=== PATIENT | female | born 1945 | race Caucasian/White ===

== ENCOUNTER 2017-01-02 11:23 | Outpatient (CLI) | payer OTHER, MEDICARE ==
[2017-01-02 19:25] LABS: ALBUMIN/GLOBULIN RATIO 1.4 (1.0-2.2); BILIRUBIN,TOTAL 0.7 mg/dL (0.2-1.0); BUN - BLOOD UREA NITROGEN 15 mg/dL (6-20); CALCIUM 9.4 mg/dL (8.5-10.3); CARBON DIOXIDE - CO2 28 mmol/L (21-32); CHLORIDE 104 mmol/L (101-111); CHOL/HDL RATIO 3.9 (<4.4); CHOLESTEROL 189 mg/dL; CREATININE 0.7 mg/dL (0.4-1.0); GFR - MDRD 83 (>89); GLUCOSE 92 mg/dL (70-100); HDL CHOLESTEROL 49 mg/dL; LDL/HDL RATIO 2.2 (<4.4); POTASSIUM 4.5 mmol/L (3.5-5.0); SODIUM 139 mmol/L (135-145); TOTAL PROTEIN 7.6 g/dL (6.7-8.2); TRIGLYCERIDES 149 mg/dL; VLDL CHOLESTEROL 30 mg/dL
[2017-01-02 19:35] LABS: BASOPHILS % (AUTO) 0.6 %; EOSINOPHILS # (AUTO) 0.1 10^3/uL (0.0-0.7); HCT - HEMATOCRIT 43.4 % (37.0-47.0); HGB - HEMOGLOBIN 14.5 g/dL (12.0-16.0); LYMPHOCYTES # (AUTO) 1.5 10^3/uL (1.5-3.5); LYMPHOCYTES % (AUTO) 32.9 %; MEAN CORPUSCULAR HEMOGLOBIN 31.8 pg (27.0-31.0); MEAN CORPUSCULAR HGB CONC 33.5 g/dL (32.0-36.0); MEAN CORPUSCULAR VOLUME 95.1 fL (81.0-99.0); MEAN PLATELET VOLUME 7.9 fL (7.9-10.8); MONOCYTES # (AUTO) 0.6 10^3/uL (0.0-1.0); MONOCYTES % (AUTO) 13.6 %; NEUTROPHILS # (AUTO) 2.3 10^3/uL (1.5-6.6); NEUTROPHILS % (AUTO) 50.9 %; NUCLEATED RED BLOOD CELLS AUTO 0.2 /100WBC; RED BLOOD COUNT 4.56 10^6/uL (4.20-5.40); UNCORRECTED WHITE BLOOD COUNT 4.4 x10^3/uL; WHITE BLOOD COUNT 4.4 x10^3/uL (4.8-10.8)
[2017-01-02 20:25] LABS: HEMOGLOBIN A1C 0.55 g/dL
== END 2017-01-02 11:24 | disposition home or self-care (01) ==
LOC: LAB.N 11:23
PROVIDERS: ATTEND Physician Assistant
DX: R03.0 Elevated blood-pressure reading, without diagnosis of hypertension (principal)
CPT/HCPCS: 36415; 80053; 80061; 83036; 84443; 85025

== ENCOUNTER 2020-06-23 11:50 | Outpatient (CLI) | payer MEDICARE, OTHER ==
--- NOTE | 2020-06-23 16:29 | XRAY Report ---
PROCEDURE: Shoulder 3 View LT INDICATIONS: L SHOULDER PX TECHNIQUE: 3 views of the shoulder were acquired. COMPARISON: None. FINDINGS: Bones: No fractures or dislocations. No suspicious bony lesions. Moderate acromioclavicular and cl avicular humeral joint degeneration. Possible intra-articular body or large osteophyte inferior gleno humeral joint. Visualized ribs appear intact. Soft tissues: No suspicious soft tissue calcifications. IMPRESSION: 1. Moderate degenerative joint disease. 2. Possible intra-articular body or large osteophyte in the inferior glenohumeral joint. Reviewed by: Vanessa Apple MD on 06/23/2020 4:28 PM PST Approved by: Vanessa Apple MD on 06/23/2020 4:28 PM PST Station ID: [id number]
== END 2020-06-23 11:51 | disposition home or self-care (01) ==
LOC: DI.N 11:50
PROVIDERS: ATTEND Family Medicine
DX: S46.912A Strain of unspecified muscle, fascia and tendon at shoulder and upper arm level, left arm, initial encounter (principal); M19.012 Primary osteoarthritis, left shoulder

== ENCOUNTER 2020-12-30 08:55 | Outpatient (CLI) | payer MEDICARE ==
--- NOTE | 2020-12-30 14:04 | MRI Report ---
PROCEDURE: Shoulder LT W/O INDICATIONS: OSTEOARTHRITIS LEFT SHOULDER, STRAIN OF LEFT SHOUL TECHNIQUE: Noncontrast oblique coronal T2 fast spin echo with fat saturation, oblique sagittal T1 spin echo and T2 fast spin echo with fat saturation, axial T1 spin echo and T2 fast spin echo with fat saturation t hrough the shoulder. COMPARISON: Left shoulder radiographs 06/23/2020. FINDINGS: Image quality: Excellent. Rotator cuff: Mild supraspinatus and infraspinatus tendinosis is seen without a significant tear. Th e teres minor tendon is intact. There is mild subscapularis tendinosis and moderate grade partial int rasubstance tearing at the distal insertion.. Mild edema is seen in the medial aspect of the supraspi natus, subscapularis, and infraspinatus muscles, consistent with low-grade muscle strains. There is n o significant rotator cuff muscle atrophy. Bones and bursae: No acute trabecular bone injury. Severe degenerative changes are seen in the gleno humeral joint with large areas of full-thickness cartilage loss, subchondral cystic changes and edema , and marginal osteophyte formation. There is mild remodeling of the glenoid with approximately 8 deg ree retroversion relative to the midplane of the scapula at the mid glenoid level. There is mild acro mioclavicular joint osteoarthrosis there is a moderate glenohumeral effusion with mild synovial hyper trophy. A 3 mm hypointensity is seen in the axillary recess that is suspicious for a small intra-mike cular loose body. Capsule and soft tissues: There is mild circumferential labral degeneration. The long head of the bi ceps tendon demonstrates tendinosis and mild medial subluxation/perching along the medial aspect of t he bicipital groove. There is partial effacement of the normal fat signal in the rotator interval. The inferior glenohumeral ligament is normal in thickness. IMPRESSION: 1. Severe glenohumeral osteoarthrosis with large areas of full-thickness cartilage loss in the gleno humeral joint as well as subchondral cystic changes and edema and marginal osteophyte formation. Jaylon deling of the glenoid is seen with approximately 8 degrees of retroversion relative to the midplane o f the scapula at the mid glenoid level. 2. Moderate grade intrasubstance tearing at the superior subscapularis tendon insertion superimposed on tendinosis. Mild supraspinatus and infraspinatus tendinosis. 3. Low-grade strains of the medial supraspinatus, infraspinatus, and subscapularis muscles. 4. Tendinosis and mild medial subluxation of the biceps long head tendon. 5. Mild circumferential labral degeneration. 6. Mild acromioclavicular joint osteoarthrosis. 7. Moderate joint effusion with mild synovial hypertrophy and a 3 mm suspected loose body in the axi llary recess. Reviewed by: Rajiv Mckinnon MD on 12/30/2020 2:03 PM PDT Approved by: Rajiv Mckinnon MD on 12/30/2020 2:03 PM PDT Station ID: [id number]
== END 2020-12-30 08:56 | disposition home or self-care (01) ==
LOC: DI 08:55
PROVIDERS: ATTEND Family Medicine
DX: M19.012 Primary osteoarthritis, left shoulder (principal); S46.022A Laceration of muscle(s) and tendon(s) of the rotator cuff of left shoulder, initial encounter; S46.012A Strain of muscle(s) and tendon(s) of the rotator cuff of left shoulder, initial encounter; M75.82 Other shoulder lesions, left shoulder; M25.412 Effusion, left shoulder

== ENCOUNTER 2023-05-19 13:50 | Outpatient (CLI) | payer MEDICARE ==
--- NOTE | 2023-05-19 14:53 | XRAY Report ---
PROCEDURE: Chest 2V INDICATIONS: CHRONIC COUGH TECHNIQUE: 2 views of the chest were acquired. COMPARISON: None. FINDINGS: Surgical changes and devices: Right upper quadrant surgical clips. Lungs and pleura: No pleural effusions or pneumothorax. Small high attenuation focus within the kaylee pheral left lower lung zone measuring approximately 4 mm, may represent calcified granuloma. Lungs a re otherwise clear. Mediastinum: Mediastinal contours appear normal. Heart size is normal. Bones and chest wall: No suspicious bony lesions. Overlying soft tissues appear unremarkable. IMPRESSION: 1.No acute cardiopulmonary process. 2.Small has attenuation focus within the peripheral left lower lung zone may represent a calcified gr anuloma. Recommend correlation with prior imaging if available or follow-up radiograph to assess stab ility. Reviewed by: Tito Dela Cruz MD on 05/19/2023 2:52 PM PST Approved by: Tito Dela Cruz MD on 05/19/2023 2:52 PM PST Station ID: [id number]
== END 2023-05-19 13:51 | disposition home or self-care (01) ==
LOC: DI.N 13:50
PROVIDERS: ATTEND Internal Medicine
DX: R06.00 Dyspnea, unspecified (principal); R05.3 Chronic cough; R91.8 Other nonspecific abnormal finding of lung field